=== PATIENT | female | born 1975 | race Two or more races ===

== ENCOUNTER 2019-04-01 08:21 | Emergency (ER) | payer OTHER ==
[~2019-04-01] VITALS: Ht 172.7 cm; Wt 81.6 kg
--- NOTE | 2019-04-01 08:49 | PHYS DOC ---
Past Medical History Past Medical History: No Pertinent History Past Surgical History: Tonsillectomy, Other Additional Past Surgical Histo: PRK, JAW RECONSTRUCTION, L. ANKLE Alcohol Use: Occasionally Drug Use: None Adult General Chief Complaint Chief Complaint: LOWER BACK PAIN OR INJURY HPI HPI Patient is a 43 year old female with no significant medical history who presents to the ED today complaining of 5 out of 10 left low back pain radiating to the left lower quadrant that began yesterday. Patient is also complaining of chills and nausea. Denies any hematuria. Denies any personal family history of kidney stones. Review of Systems Review of Systems Constitutional: Denies fever or chills [] Eyes: Denies change in visual acuity, redness, or eye pain [] HENT: Denies nasal congestion or sore throat [] Respiratory: Denies cough or shortness of breath [] Cardiovascular: No additional information not addressed in HPI [] GI: Reports left lower quadrant abdominal pain with nausea, denies vomiting, bloody stools or diarrhea [] : Denies dysuria or hematuria [] Musculoskeletal: Reports left low back pain radiating to the left lower quadrant. Integument: Denies rash or skin lesions [] Neurologic: Denies headache, focal weakness or sensory changes [] All other systems were reviewed and found to be within normal limits, except as documented in this note. Current Medications Current Medications Current Medications Medications (Trade) Dose Ordered Sig/Irene Start Time Stop Time Status Last Admin Dose Admin Ondansetron HCl (Zofran) 4 mg 1X ONCE 04/01/19 09:00 04/01/19 09:01 DC 04/01/19 09:06 4 MG Sodium Chloride 1,000 ml @ 1,000 mls/hr 1X ONCE 04/01/19 09:00 04/01/19 09:59 DC 04/01/19 09:06 1,000 MLS/HR Allergies Allergies Allergies Coded Allergies Type Severity Reaction Last Updated Verified No Known Drug Allergies 04/01/19 No Physical Exam Physical Exam Constitutional: Well developed, well nourished, no acute distress, non-toxic appearance. [] HENT: Normocephalic, atraumatic, bilateral external ears normal, oropharynx moist, no oral exudates, nose normal. [] Eyes: PERRLA, EOMI, conjunctiva normal, no discharge. [] Neck: Normal range of motion, no tenderness, supple, no stridor. [] Cardiovascular:Heart rate regular rhythm, no murmur [] Lungs & Thorax: Bilateral breath sounds clear to auscultation [] Abdomen: Bowel sounds normal, soft, no tenderness, no masses, no pulsatile masses. [] Skin: Warm, dry, no erythema, no rash. [] Back: No tenderness, no CVA tenderness. [] Extremities: No tenderness, no cyanosis, no clubbing, ROM intact, no edema. [] Neurologic: Alert and oriented X 3, normal motor function, normal sensory function, no focal deficits noted. [] Psychologic: Affect normal, judgement normal, mood normal. [] Current Patient Data Vital Signs Vital Signs Date Time Temp Pulse Resp B/P (MAP) Pulse Ox O2 Delivery O2 Flow Rate FiO2 04/01/19 08:40 98.3 65 18 117/73 (88) 100 Room Air 98.3 Lab Values Laboratory Tests Test 04/01/19 08:35 04/01/19 08:57 04/01/19 09:03 Urine Collection Type Unknown Urine Color Yellow Urine Clarity Clear Urine pH 6.0 Urine Specific Rankin 1.010 Urine Protein Negative mg/dL (NEG-TRACE) Urine Glucose (UA) Negative mg/dL (NEG) Urine Ketones (Stick) Negative mg/dL (NEG) Urine Blood Trace (NEG) Urine Nitrite Negative (NEG) Urine Bilirubin Negative (NEG) Urine Urobilinogen Dipstick 0.2 mg/dL (0.2 mg/dL) Urine Leukocyte Esterase Trace (NEG) Urine RBC 3-5 /HPF (0-2) Urine WBC 1-4 /HPF (0-4) Urine Squamous Epithelial Cells Mod /LPF Urine Bacteria Moderate /HPF (0-FEW) White Blood Count 5.1 x10^3/uL (4.0-11.0) Red Blood Count 4.24 x10^6/uL (3.50-5.40) Hemoglobin 13.8 g/dL (12.0-15.5) Hematocrit 41.1 % (36.0-47.0) Mean Corpuscular Volume 97 fL (79-100) Mean Corpuscular Hemoglobin 33 pg (25-35) Mean Corpuscular Hemoglobin Concent 34 g/dL (31-37) Red Cell Distribution Width 12.9 % (11.5-14.5) Platelet Count 211 x10^3/uL (140-400) Neutrophils (%) (Auto) 79 % (31-73) H Lymphocytes (%) (Auto) 12 % (24-48) L Monocytes (%) (Auto) 6 % (0-9) Eosinophils (%) (Auto) 2 % (0-3) Basophils (%) (Auto) 0 % (0-3) Neutrophils # (Auto) 4.0 x10^3/uL (1.8-7.7) Lymphocytes # (Auto) 0.6 x10^3/uL (1.0-4.8) L Monocytes # (Auto) 0.3 x10^3/uL (0.0-1.1) Eosinophils # (Auto) 0.1 x10^3/uL (0.0-0.7) Basophils # (Auto) 0.0 x10^3/uL (0.0-0.2) Sodium Level 140 mmol/L (136-145) Potassium Level 4.3 mmol/L (3.5-5.1) Chloride Level 106 mmol/L (98-107) Carbon Dioxide Level 27 mmol/L (21-32) Anion Gap 7 (6-14) Blood Urea Nitrogen 11 mg/dL (7-20) Creatinine 0.9 mg/dL (0.6-1.0) Estimated GFR (Cockcroft-Gault) 68.3 BUN/Creatinine Ratio 12 (6-20) Glucose Level 89 mg/dL (70-99) Calcium Level 8.0 mg/dL (8.5-10.1) L Total Bilirubin 1.1 mg/dL (0.2-1.0) H Aspartate Amino Transferase (AST) 28 U/L (15-37) Alanine Aminotransferase (ALT) 27 U/L (14-59) Alkaline Phosphatase 62 U/L (46-116) Total Protein 7.2 g/dL (6.4-8.2) Albumin 3.7 g/dL (3.4-5.0) Albumin/Globulin Ratio 1.1 (1.0-1.7) Lipase 115 U/L (73-393) POC Urine HCG, Qualitative Hcg negative (Negative) Laboratory Tests 04/01/19 08:57 Laboratory Tests 04/01/19 08:57 EKG EKG [] Radiology/Procedures Radiology/Procedures [] Course & Med Decision Making Course & Med Decision Making Pertinent Labs and Imaging studies reviewed. (See chart for details) This is a 43-year-old female patient presented to the ED today with left lower back pain radiating to the left lower quadrant that began yesterday. CBC, CMP-no acute findings. Urine has quite a bit of bacteria, trace amount of leukocytes, 1-4 WBCs-patient could be having early presentation of UTI though the urine appears contaminated-will d/c on Bactrim for 3 days, D/c on cyclobenzaprine, diclofenac to cover her for musculoskeletal aspect of the back pain. Instructed to push fluids. Dragon Disclaimer Dragon Disclaimer This electronic medical record was generated, in whole or in part, using a voice recognition dictation system. Departure Departure Impression: Primary Impression: Back pain Additional Impression: UTI (urinary tract infection) Disposition: HOME, SELF-CARE Condition: STABLE Patient Instructions: Back Pain, Adult, Urinary Tract Infection Additional Instructions: You were evaluated in the emergency room for back pain, we put you on antibiotics to cover you for infection in the urine. Ensure you complete them. Take the prescribed medications as ordered. Push fluids. Follow-up with your doctor in one week. Scripts Cyclobenzaprine Hcl (CYCLOBENZAPRINE HCL) 10 Mg Tablet 1 TAB PO TID, #30 TAB Prov: BECKA WITNER APRN 04/01/19 Diclofenac Potassium (DICLOFENAC POTASSIUM) 50 Mg Tablet 1 TAB PO BID, #20 TAB 0 Refills Prov: BECKA WINTER APRN 04/01/19 Sulfamethoxazole/Trimethoprim (BACTRIM DS TABLET) 1 Each Tablet 1 TAB PO BID, #6 TAB Prov: BECKA WINTER APRN 04/01/19 Problem Qualifiers Primary Impression: Back pain Back pain location: low back pain Chronicity: acute Back pain laterality: left Sciatica presence: with sciatica Sciatica laterality: sciatica of left side Qualified Codes: M54.42 - Lumbago with sciatica, left side Additional Impression: UTI (urinary tract infection) Urinary tract infection type: site unspecified Hematuria presence: without hematuria Qualified Codes: N39.0 - Urinary tract infection, site not specified BECKA WINTER APRN Apr 01, 2019 08:49
[2019-04-01] MEDS ORDERED: IV NORMAL SALINE 1000ML BAG 1,000 ML IV ONE (09:00)
[2019-04-01] MEDS ORDERED: ONDANSETRON PF 4 MG/2 ML VIAL. IV ONE (09:00)
[2019-04-01 09:10] LABS: BASO % 0 % (0-3); EOS # 0.1 x10^3/uL (0.0-0.7); EOS % 2 % (0-3); HEMATOCRIT 41.1 % (36.0-47.0); HEMOGLOBIN 13.8 g/dL (12.0-15.5); LYMPH # 0.6 x10^3/uL (1.0-4.8); LYMPH % 12 % (24-48); MEAN CORPUSCULAR HEMOGLOBIN 33 pg (25-35); MEAN CORPUSCULAR HGB CONC 34 g/dL (31-37); MEAN CORPUSCULAR VOLUME 97 fL (79-100); MONO # 0.3 x10^3/uL (0.0-1.1); MONO % 6 % (0-9); NEUT % 79 % (31-73); PLATELET COUNT 211 x10^3/uL (140-400); RED BLOOD COUNT 4.24 x10^6/uL (3.50-5.40); RED CELL DISTRIBUTION WIDTH 12.9 % (11.5-14.5); WHITE BLOOD COUNT 5.1 x10^3/uL (4.0-11.0)
[2019-04-01 09:10] LABS: BILIRUBIN,URINE NEGATIVE (NEG); CLARITY,URINE CLEAR; COLOR,URINE YELLOW; NITRITE,URINE NEGATIVE (NEG); PROTEIN,URINE NEGATIVE (NEG-TRACE); UROBILINOGEN,URINE 0.2 mg/dL (0.2 mg/dL)
[2019-04-01 09:22] LABS: CREATININE 0.9 mg/dL (0.6-1.0); GFR 68.3; POTASSIUM 4.3 mmol/L (3.5-5.1)
[2019-04-01 09:24] LABS: BACTERIA,URINE MODERATE /HPF (0-FEW); SQUAMOUS EPITHELIAL CELL,UR MOD /LPF
[2019-04-01 09:28] LABS: ALBUMIN 3.7 g/dL (3.4-5.0); ALBUMIN/GLOBULIN RATIO 1.1 (1.0-1.7); TOTAL BILIRUBIN 1.1 mg/dL (0.2-1.0); TOTAL PROTEIN 7.2 g/dL (6.4-8.2)
[2019-04-01 10:21] VITALS: BP 96/55
[2019-04-01] MEDS ORDERED: CYCL10TA2 PO (10:44)
[2019-04-01] MEDS ORDERED: DICL50TA2 PO (10:44)
[2019-04-01] MEDS ORDERED: SULF1TAB24 PO (10:44)
[2019-04-01] MEDS ORDERED: NAPROXEN 500 MG TABLET PO STA (10:47)
[2019-04-01] MEDS ORDERED: CYCLOBENZAPRINE 10 MG TABLET. PO ONE (11:00)
[2019-04-01] MEDS ORDERED: HYDROcodone/APAP 5/325MG 1 TAB TABLET PO ONE (11:00)
== END 2019-04-01 11:06 | disposition home or self-care (01) ==
LOC: ER 08:21
DX: N39.0 Urinary tract infection, site not specified (principal); M54.42 Lumbago with sciatica, left side
CPT/HCPCS: 36415; 80053; 81001; 81025; 83690; 85025; 87086; 96374; 99284; J2405; J7030

== ENCOUNTER 2020-01-28 13:55 | Emergency (ER) | payer OTHER ==
[~2020-01-28] VITALS: Ht 172.7 cm; Wt 90.0 kg
[~2020-01-28 13:55] MED LIST: CYCL10TA2 PO; DICL50TA2 PO; SULF1TAB24 PO
[2020-01-28] MEDS ORDERED: ONDANSETRON PF 4 MG/2 ML VIAL. IVP ONE (14:15)
[2020-01-28] MEDS ORDERED: MORPHINE SULFATE 2 MG/ML VIAL. IV ONE (14:15)
[2020-01-28] MEDS ORDERED: IV NORMAL SALINE 1000ML BAG 1,000 ML IV ONE (14:15)
[2020-01-28 14:16] LABS: BASO % 0 % (0-3); EOS # 0.2 x10^3/uL (0.0-0.7); EOS % 2 % (0-3); HEMATOCRIT 39.7 % (36.0-47.0); HEMOGLOBIN 13.7 g/dL (12.0-15.5); LYMPH # 1.8 x10^3/uL (1.0-4.8); LYMPH % 22 % (24-48); MEAN CORPUSCULAR HEMOGLOBIN 33 pg (25-35); MEAN CORPUSCULAR HGB CONC 35 g/dL (31-37); MEAN CORPUSCULAR VOLUME 94 fL (79-100); MONO # 0.4 x10^3/uL (0.0-1.1); MONO % 5 % (0-9); NEUT # 5.8 x10^3/uL (1.8-7.7); NEUT % 71 % (31-73); PLATELET COUNT 211 x10^3/uL (140-400); RED BLOOD COUNT 4.21 x10^6/uL (3.50-5.40); RED CELL DISTRIBUTION WIDTH 13.1 % (11.5-14.5); WHITE BLOOD COUNT 8.3 x10^3/uL (4.0-11.0)
[2020-01-28 14:17] LABS: BILIRUBIN,URINE NEGATIVE (NEG); CLARITY,URINE CLOUDY; COLOR,URINE YELLOW; NITRITE,URINE NEGATIVE (NEG); PH,URINE 6.5 (<5.0-8.0); PROTEIN,URINE NEGATIVE (NEG-TRACE); UROBILINOGEN,URINE 0.2 mg/dL (0.2 mg/dL)
--- NOTE | 2020-01-28 14:18 | PHYS DOC ---
Past Medical History Past Medical History: Sciatica Additional Past Medical Histor: "I'm high risk for cancer so i take a prescription preventative." Past Surgical History: Tonsillectomy, Other Additional Past Surgical Histo: PRK, JAW RECONSTRUCTION, L. ANKLE Smoking Status: Never Smoker Alcohol Use: None Drug Use: None General Adult EDM: Chief Complaint: FLANK PAIN HPI: HPI: Patient is a 44 year old female who presents with states last night she began having bilateral lower flank pain that wraps around to her bilateral lower abdomen. She states that at first the pain would dull but then it would come back. She states that she will take Tylenol and ibuprofen but is not helping. She states she is much worse today and she is having nausea but she has not vomited. She denies having any burning with urination but states she was unable to urinate last couple of hours. She denies any kind of fever, vomiting, blood in her urine, diarrhea, constipation, headache, dizziness, shortness of breath, chest pain. She currently has the Mirena so she does not have periods. Review of Systems: Review of Systems: GI: abdominal pain, nausea, denies vomiting, bloody stools or diarrhea. [] Musculoskeletal: Bilateral flank back pain or joint pain. [] Heart Score: Risk Factors: Risk Factors: DM, Current or recent (<one month) smoker, HTN, HLP, family history of CAD, obesity. Risk Scores: Score 0 - 3: 2.5% MACE over next 6 weeks - Discharge Home Score 4 - 6: 20.3% MACE over next 6 weeks - Admit for Clinical Observation Score 7 - 10: 72.7% MACE over next 6 weeks - Early Invasive Strategies Current Medications: Current Medications Medications (Trade) Dose Ordered Sig/[facility] Start Time Stop Time Status Last Admin Dose Admin Morphine Sulfate (Morphine Sulfate) 2 mg 1X ONCE 01/28/20 14:15 01/28/20 14:16 Ondansetron HCl (Zofran) 4 mg 1X ONCE 01/28/20 14:15 01/28/20 14:16 Sodium Chloride 1,000 ml @ 1,000 mls/hr 1X ONCE 01/28/20 14:15 01/28/20 15:14 Allergies: Allergies: Allergies Coded Allergies Type Severity Reaction Last Updated Verified No Known Drug Allergies 04/01/19 No Physical Exam: PE: Constitutional: Well developed, well nourished, no acute distress, non-toxic appearance. [] HENT: Normocephalic, atraumatic, bilateral external ears normal, oropharynx moist, no oral exudates, nose normal. [] Eyes: PERRLA, EOMI, conjunctiva normal, no discharge. [] Neck: Normal range of motion, no tenderness, supple, no stridor. [] Cardiovascular:Heart rate regular rhythm, no murmur [] Lungs & Thorax: Bilateral breath sounds clear to auscultation [] Abdomen: Bowel sounds normal, soft, no tenderness, no masses, no pulsatile masses. [] Skin: Warm, dry, no erythema, no rash. [] Back: No tenderness, Bilateral CVA tenderness. [] Extremities: No tenderness, no cyanosis, no clubbing, ROM intact, no edema. [] Neurologic: Alert and oriented X 3, normal motor function, normal sensory fun ction, no focal deficits noted. [] Psychologic: Affect normal, judgement normal, mood normal. [] Current Patient Data: Vital Signs: Vital Signs Date Time Temp Pulse Resp B/P (MAP) Pulse Ox O2 Delivery O2 Flow Rate FiO2 01/28/20 13:57 98.7 61 20 111/57 (75) 100 Room Air 98.7 EKG: EKG: [] Radiology/Procedures: Radiology/Procedures: [] Impression: [facility] [address] [place], [place] [id number] IMAGING REPORT Signed PATIENT: KENDY ROSE MACCOUNT: [id number] : 1975 LOCATION: ER AGE: 44 SEX: F EXAM STATUS: REG ER ORD. PHYSICIAN: MISSY MARKS APRN REASON: flank pain and lower abd pain PROCEDURE: CT ABD PELV W/ IV CONTRST ONLY CT ABD PELV W/ IV CONTRST ONLY History: Reason: flank pain and lower abd pain / Spl. Instructions: INJ 75ML OMNI 300 / History: Comparison: None. Technique: After administration of intravenous contrast, helical CT of the abdomen and pelvis was performed from the lung bases through the ischial tuberosities. Coronal and sagittal reconstructions were obtained. 75 mL of Omnipaque 300 were used. One or more of the following dose reduction techniques were utilized: Automated exposure control (AEC), Adjustment of mA and/or kV according to patient size, Use of iterative reconstruction technique such as ASiR, CT scan done according to ALARA and image gently/image wisely Abdomen Findings: The visualized lung bases are clear. Small hiatal hernia. The liver, gallbladder, pancreas, spleen, and bilateral adrenal glands are normal. Symmetric renal enhancement. There is no focal renal mass. There is no hydronephrosis. The visualized loops of small bowel are normal. The visualized loops of large bowel are normal. There is no evidence of bowel obstruction. Appendix is normal. There is no free fluid. There is no mesenteric or retroperitoneal adenopathy. The abdominal aorta is normal in caliber. Pelvis Findings: Urinary bladder is markedly distended. Uterus is present. IUD in place. There is no pelvic or inguinal adenopathy. Degenerative changes of the spine. IMPRESSION: Markedly distended bladder. Consider decompression. No hydronephrosis or opaque urinary calculi. Electronically signed by: Chris Lee MD (01/28/2020 4:38 PM) [id number] DICTATED and SIGNED BY: CHRIS LEE MD DATE: 01/28/20 [id number] Course & Med Decision Making: Course & Med Decision Making Pertinent Labs and Imaging studies reviewed. (See chart for details) Abdomen is soft and nontender. Bilateral CVA tenderness. Alert and oriented. Patient was unable to move herself from the cot to the bed due to the pain. Speaks in full clear sentences. Patient is tearful. No extremity edema. EMS gave the patient 100 mcgs of fentanyl prior to arrival. Patient is rating her pain 8 out of 10. She states it is sharp and radiating. Denies injury. Hemodynamically stable. Afebrile. CT shows no acute findings. Patient will be sent home on antibiotics. She did receive Rocephin 1 g in the ED. Patient is able to get up and ambulate without complications. She went to the restroom by herself. [] Dragon Disclaimer: Dragon Disclaimer: This electronic medical record was generated, in whole or in part, using a voice recognition dictation system. Departure Departure Impression: Primary Impression: UTI (urinary tract infection) Qualified Codes: N39.0 - Urinary tract infection, site not specified Disposition: HOME, SELF-CARE Condition: STABLE Referrals: NO PCP (PCP) Patient Instructions: Urinary Tract Infection Additional Instructions: Follow up with primary care provider. Take medications as prescribed and with food. Drink plenty of fluids. Scripts Hydrocodone/Apap 5-325 (NORCO 5-325 TABLET) 1 Each Tablet 1 TAB PO PRN Q6HRS PRN for PAIN, #12 TAB 0 Refills Prov: MISSY MARKS APRN 01/28/20 Ondansetron (ONDANSETRON ODT) 4 Mg Tab.rapdis 1 TAB PO PRN Q6-8HRS, #20 TAB Prov: MISSY MARKS APRN 01/28/20 Cephalexin (KEFLEX) 500 Mg Capsule 1 CAP PO BID for 7 Days, #14 CAP 0 Refills Prov: MISSY MARKS [employer] INST[employer]ER 01/28/20 MISSY MARKS APRN January 28, 2020 14:18
[2020-01-28 14:27] LABS: CALCIUM 8.6 mg/dL (8.5-10.1); GFR 60.2; POTASSIUM 3.4 mmol/L (3.5-5.1)
[2020-01-28 14:31] LABS: BACTERIA,URINE MANY /HPF (0-FEW); RBC,URINE 0 /HPF (0-2); SQUAMOUS EPITHELIAL CELL,UR MANY /LPF; WBC,URINE 20-40 /HPF (0-4)
[2020-01-28 14:33] LABS: ALBUMIN 3.6 g/dL (3.4-5.0); ALBUMIN/GLOBULIN RATIO 1.2 (1.0-1.7); TOTAL BILIRUBIN 0.7 mg/dL (0.2-1.0); TOTAL PROTEIN 6.7 g/dL (6.4-8.2)
[2020-01-28 14:35] LABS: PROTHROMBIN TIME PATIENT 12.7 SEC (11.7-14.0)
[2020-01-28] MEDS ORDERED: cefTRIAXone IV Push 1 GM VIAL. IVP ONE (14:45)
[2020-01-28] MEDS ORDERED: CONTRAST GIVEN. MC PRN (15:00)
[2020-01-28] MEDS ORDERED: IOHEXOL 300 MG/ML 100ML VIAL. IV ONE (15:00)
--- NOTE | 2020-01-28 16:42 | RAD ---
CT ABD PELV W/ IV CONTRST ONLY History: Reason: flank pain and lower abd pain / Spl. Instructions: INJ 75ML OMNI 300 / History: Comparison: None. Technique: After administration of intravenous contrast, helical CT of the abdomen and pelvis was performed from the lung bases through the ischial tuberosities. Coronal and sagittal reconstructions were obtained. 75 mL of Omnipaque 300 were used. One or more of the following dose reduction techniques were utilized: Automated exposure control (AEC), Adjustment of mA and/or kV according to patient size, Use of iterative reconstruction technique such as ASiR, CT scan done according to ALARA and image gently/image wisely Abdomen Findings: The visualized lung bases are clear. Small hiatal hernia. The liver, gallbladder, pancreas, spleen, and bilateral adrenal glands are normal. Symmetric renal enhancement. There is no focal renal mass. There is no hydronephrosis. The visualized loops of small bowel are normal. The visualized loops of large bowel are normal. There is no evidence of bowel obstruction. Appendix is normal. There is no free fluid. There is no mesenteric or retroperitoneal adenopathy. The abdominal aorta is normal in caliber. Pelvis Findings: Urinary bladder is markedly distended. Uterus is present. IUD in place. There is no pelvic or inguinal adenopathy. Degenerative changes of the spine. IMPRESSION: Markedly distended bladder. Consider decompression. No hydronephrosis or opaque urinary calculi. Electronically signed by: Chris Sheffield MD (01/28/2020 4:38 PM) [id number]
[2020-01-28] MEDS ORDERED: CEPH-264 PO (16:53)
[2020-01-28] MEDS ORDERED: HYDR-3164 PO (16:53)
[2020-01-28] MEDS ORDERED: ONDA4TAB12 PO (16:53)
[2020-01-28 17:26] VITALS: BP 96/57
== END 2020-01-28 17:35 | disposition home or self-care (01) ==
LOC: ER 13:55
DX: N39.0 Urinary tract infection, site not specified (principal); R10.32 Left lower quadrant pain; R10.31 Right lower quadrant pain; R11.0 Nausea; Z90.89 Acquired absence of other organs; Z98.890 Other specified postprocedural states
CPT/HCPCS: 36415; 74177; 80053; 81001; 81025; 85025; 85610; 87086; 96374; 96375; 99285; J0696; J2270; J2405; J7030; Q9967

== ENCOUNTER 2020-02-21 10:47 | Emergency (ER) | payer OTHER ==
[~2020-02-21] VITALS: Ht 172.7 cm; Wt 89.0 kg
[~2020-02-21 10:47] MED LIST changes: +CEPH-264 PO; +HYDR-3164 PO; +ONDA4TAB12 PO
[2020-02-21] MEDS ORDERED: HYDR-3164 PO (11:11)
[2020-02-21] MEDS ORDERED: METH-38 PO (11:11)
--- NOTE | 2020-02-21 11:12 | PHYS DOC ---
Past Medical History Past Medical History: Sciatica Additional Past Medical Histor: "I'm high risk for cancer so i take a prescription preventative." Past Surgical History: Tonsillectomy, Other Additional Past Surgical Histo: PRK, JAW RECONSTRUCTION, L. ANKLE Smoking Status: Never Smoker Alcohol Use: None Drug Use: None General Adult EDM: Chief Complaint: LOWER BACK PAIN OR INJURY HPI: HPI: Patient is a 44-year-old female with a chronic history of back pain. She states she is been having trouble for about a year and a half. She states today she has had more problems in her low back radiating into her right hip and leg. She states the pain in her leg is a burning sensation. She denies any bowel or bladder dysfunction. She does not know how she aggravated her back pain this time. She has not taken anything at home to help relieve the pain. [] Review of Systems: Review of Systems: Constitutional: Denies fever or chills. [] Eyes: Denies change in visual acuity. [] HENT: Denies nasal congestion or sore throat. [] Respiratory: Denies cough or shortness of breath. [] Cardiovascular: Denies chest pain or edema. [] GI: Denies abdominal pain, nausea, vomiting, bloody stools or diarrhea. [] : Denies dysuria. [] Musculoskeletal: Per HPI [] Integument: Denies rash. [] Neurologic: Denies headache, focal weakness or sensory changes. [] Endocrine: Denies polyuria or polydipsia. [] Lymphatic: Denies swollen glands. [] Psychiatric: Denies depression or anxiety. [] Heart Score: Risk Factors: Risk Factors: DM, Current or recent (<one month) smoker, HTN, HLP, family history of CAD, obesity. Risk Scores: Score 0 - 3: 2.5% MACE over next 6 weeks - Discharge Home Score 4 - 6: 20.3% MACE over next 6 weeks - Admit for Clinical Observation Score 7 - 10: 72.7% MACE over next 6 weeks - Early Invasive Strategies Current Medications: Current Medications Medications (Trade) Dose Ordered Sig/Irene Start Time Stop Time Status Last Admin Dose Admin Ketorolac Tromethamine (Toradol Im) 60 mg 1X ONCE 02/21/20 11:15 02/21/20 11:16 Orphenadrine Citrate (Norflex) 60 mg 1X ONCE 02/21/20 11:15 02/21/20 11:16 Allergies: Allergies: Allergies Coded Allergies Type Severity Reaction Last Updated Verified No Known Drug Allergies 04/01/19 No Physical Exam: PE: Constitutional: Well developed, well nourished, moderate distress, non-toxic appearance. [] HENT: Normocephalic, atraumatic, bilateral external ears normal, oropharynx moist, no oral exudates, nose normal. [] Eyes: PERRLA, EOMI, conjunctiva normal, no discharge. [] Neck: Normal range of motion, no tenderness, supple, no stridor. [] Cardiovascular:Heart rate regular rhythm, no murmur [] Lungs & Thorax: Bilateral breath sounds clear to auscultation [] Abdomen: Bowel sounds normal, soft, no tenderness, no masses, no pulsatile masses. [] Skin: Warm, dry, no erythema, no rash. [] Back: Lumbar paraspinal muscle spasm positive straight leg raise on the right. [] Extremities: No tenderness, no cyanosis, no clubbing, ROM intact, no edema. [] Neurologic: Alert and oriented X 3, normal motor function, normal sensory function, no focal deficits noted. [] Psychologic: Anxious. [] EKG: EKG: [] Radiology/Procedures: Radiology/Procedures: [] Course & Med Decision Making: Course & Med Decision Making Pertinent Labs and Imaging studies reviewed. (See chart for details) [] Dragon Disclaimer: Dragon Disclaimer: This electronic medical record was generated, in whole or in part, using a voice recognition dictation system. Departure Departure Impression: Primary Impression: Back pain Qualified Codes: M54.41 - Lumbago with sciatica, right side Disposition: 01 HOME, SELF-CARE Condition: STABLE Referrals: HALEIGH MCWILLIAMS MD (PCP) Patient Instructions: Sciatica, Sciatica with Rehab-Sports[facility] Additional Instructions: Return to the emergency department with any new or concerning symptoms Scripts Methocarbamol (ROBAXIN-750) 750 Mg Tablet 1 TAB PO TID, #30 TAB Prov: SILVIA CLAYTON DO 02/21/20 Hydrocodone/Apap 5-325 (NORCO 5-325 TABLET) 1 Each Tablet 1 TAB PO PRN Q6HRS PRN for PAIN, #15 TAB 0 Refills Prov: SILVIA CLAYTON DO 02/21/20 Justicifation of Admission Dx: Justifications for Admission: Justification of Admission Dx: No SILVIA CLAYTON DO Feb 21, 2020 11:11
[2020-02-21 11:15] VITALS: BP 120/50
[2020-02-21] MEDS ORDERED: ORPHENADRINE CITRATE 60 MG/2 ML VIAL. IM ONE (11:15)
[2020-02-21] MEDS ORDERED: KETOROLAC 60 MG/2 ML VIAL. IM ONE (11:15)
== END 2020-02-21 11:55 | disposition home or self-care (01) ==
LOC: ER 10:47
DX: M54.41 Lumbago with sciatica, right side (principal); M25.551 Pain in right hip
CPT/HCPCS: 96372; 99284; J1885; J2360

== ENCOUNTER 2020-03-13 10:40 | Emergency (ER) | payer OTHER ==
[~2020-03-13] VITALS: Ht 172.7 cm; Wt 90.0 kg
[~2020-03-13 10:40] MED LIST changes: +METH-38 PO
[2020-03-13 10:50] VITALS: BP 106/53
--- NOTE | 2020-03-13 11:13 | PHYS DOC ---
Past Medical History Past Medical History: Sciatica Additional Past Medical Histor: "I'm high risk for cancer so i take a prescription preventative.", DDD Past Surgical History: Tonsillectomy, Other Additional Past Surgical Histo: PRK, JAW RECONSTRUCTION, L. ANKLE Smoking Status: Never Smoker Alcohol Use: None Drug Use: None General Adult EDM: Chief Complaint: LOWER BACK PAIN OR INJURY HPI: HPI: Patient is a 44 year old [f__sex] who presents with [] Review of Systems: Review of Systems: Constitutional: Denies fever or chills. [] Eyes: Denies change in visual acuity. [] HENT: Denies nasal congestion or sore throat. [] Respiratory: Denies cough or shortness of breath. [] Cardiovascular: Denies chest pain or edema. [] GI: Denies abdominal pain, nausea, vomiting, bloody stools or diarrhea. [] : Denies dysuria. [] Musculoskeletal: Denies back pain or joint pain. [] Integument: Denies rash. [] Neurologic: Denies headache, focal weakness or sensory changes. [] Endocrine: Denies polyuria or polydipsia. [] Lymphatic: Denies swollen glands. [] Psychiatric: Denies depression or anxiety. [] Heart Score: Risk Factors: Risk Factors: DM, Current or recent (<one month) smoker, HTN, HLP, family history of CAD, obesity. Risk Scores: Score 0 - 3: 2.5% MACE over next 6 weeks - Discharge Home Score 4 - 6: 20.3% MACE over next 6 weeks - Admit for Clinical Observation Score 7 - 10: 72.7% MACE over next 6 weeks - Early Invasive Strategies Allergies: Allergies: Allergies Coded Allergies Type Severity Reaction Last Updated Verified No Known Drug Allergies 04/01/19 No Physical Exam: PE: Constitutional: Well developed, well nourished, no acute distress, non-toxic appearance. [] HENT: Normocephalic, atraumatic, bilateral external ears normal, oropharynx moist, no oral exudates, nose normal. [] Eyes: PERRLA, EOMI, conjunctiva normal, no discharge. [] Neck: Normal range of motion, no tenderness, supple, no stridor. [] Cardiovascular:Heart rate regular rhythm, no murmur [] Lungs & Thorax: Bilateral breath sounds clear to auscultation [] Abdomen: Bowel sounds normal, soft, no tenderness, no masses, no pulsatile masses. [] Skin: Warm, dry, no erythema, no rash. [] Back: No tenderness, no CVA tenderness. [] Extremities: No tenderness, no cyanosis, no clubbing, ROM intact, no edema. [] Neurologic: Alert and oriented X 3, normal motor function, normal sensory function, no focal deficits noted. [] Psychologic: Affect normal, judgement normal, mood normal. [] Current Patient Data: Vital Signs: Vital Signs Date Time Temp Pulse Resp B/P (MAP) Pulse Ox O2 Delivery O2 Flow Rate FiO2 03/13/20 10:50 98.6 70 16 106/53 (70) 98 Room Air 98.6 EKG: EKG: [] Radiology/Procedures: Radiology/Procedures: [] Course & Med Decision Making: Course & Med Decision Making Pertinent Labs and Imaging studies reviewed. (See chart for details) [] Dragon Disclaimer: Dragon Disclaimer: This electronic medical record was generated, in whole or in part, using a voice recognition dictation system. Departure Departure Impression: Primary Impression: Acute exacerbation of chronic low back pain Additional Impression: Sciatica Qualified Codes: M54.31 - Sciatica, right side Disposition: 01 HOME, SELF-CARE Condition: STABLE Referrals: HALEIGH MCWILLIAMS MD (PCP) JANETTE ANGUIANO MD Patient Instructions: Chronic Back Pain, Sciatica, [id number] Scripts Oxycodone/Apap 5-325 (PERCOCET 5-325 MG TABLET ) 1 Each Tablet 0.5-1 TAB PO PRN Q6HRS PRN for PAIN, #10 TAB 0 Refills Prov: CURRY LESTER DO 03/13/20 Prednisone (PREDNISONE) 20 Mg Tablet 2 TAB PO DAILY, #8 TAB Start this prescription tomorrow, Saturday03/14/20 Prov: CURRY LESTER DO 03/13/20 Justicifation of Admission Dx: Justifications for Admission: Justification of Admission Dx: N/A CURRY LESTER DO Mar 13, 2020 11:13
[2020-03-13] MEDS ORDERED: DEXAMETHASONE 4 MG TABLET PO ONE (11:15)
[2020-03-13] MEDS ORDERED: MORPHINE SULFATE 4 MG/ML VIAL. IM ONE (11:15)
[2020-03-13] MEDS ORDERED: OXYC1TAB15 PO (11:17)
[2020-03-13] MEDS ORDERED: PRED20TA PO (11:17)
== END 2020-03-13 11:30 | disposition home or self-care (01) ==
LOC: ER 10:40
DX: M54.41 Lumbago with sciatica, right side (principal); Z90.89 Acquired absence of other organs; Z98.890 Other specified postprocedural states
CPT/HCPCS: 96372; 99283; J2270

== ENCOUNTER 2020-03-23 13:46 | Emergency (ER) | payer OTHER ==
[~2020-03-23] VITALS: Ht 172.7 cm; Wt 90.0 kg
[~2020-03-23 13:46] MED LIST changes: +OXYC1TAB15 PO; +PRED20TA PO
[2020-03-23 13:53] VITALS: BP 119/61
[2020-03-23] MEDS ORDERED: MORPHINE SULFATE 4 MG/ML VIAL. IV ONE (15:00)
[2020-03-23] MEDS ORDERED: DEXAMETHASONE SOD PHOS 20 MG/5 ML VIAL. PO ONE (15:00)
[2020-03-23] MEDS ORDERED: PRED20TA PO (15:09)
--- NOTE | 2020-03-23 15:10 | PHYS DOC ---
Past Medical History Past Medical History: Sciatica, Other Additional Past Medical Histor: "I'm high risk for cancer so i take a prescription preventative.", DDD Past Surgical History: Tonsillectomy, Other Additional Past Surgical Histo: PRK, JAW RECONSTRUCTION, L. ANKLE Smoking Status: Never Smoker Alcohol Use: None Drug Use: None General Adult EDM: Chief Complaint: LOWER BACK PAIN OR INJURY HPI: HPI: Patient is a 44 year old female who presents emergency department who presents to the emergency department with complaints of chronic back pain exacerbation. She complains of bilateral lower back pain that radiates down her right leg since Saturday evening. She was seen here a few weeks ago for sciatica and she was giving a shot and a pill. Patient reports that she was prescribed oxycodone and prednisone during that visit. She states while she was taking prednisone her back pain was decreased but it returned again this week. She states that the oxycodone was only making her drowsy and not really helping with the pain. She denies any saddle anesthesia, or loss of bowel/bladder control. She denies any recent fall or new injury. She currently rates pain 9 out of 10 on the pain scale, she denies any alleviating factors, the pain increases with movement Review of Systems: Review of Systems: Constitutional: Denies fever or chills. [] Respiratory: Denies cough or shortness of breath. [] Cardiovascular: Denies chest pain or edema. [] GI: Denies abdominal pain, vomiting, or diarrhea; reports nausea : Denies dysuria. [] Musculoskeletal: See HPI Integument: Denies rash. [] Neurologic: Denies focal weakness or sensory changes. [] Psychiatric: Denies depression or anxiety. [] Heart Score: Risk Factors: Risk Factors: DM, Current or recent (<one month) smoker, HTN, HLP, family history of CAD, obesity. Risk Scores: Score 0 - 3: 2.5% MACE over next 6 weeks - Discharge Home Score 4 - 6: 20.3% MACE over next 6 weeks - Admit for Clinical Observation Score 7 - 10: 72.7% MACE over next 6 weeks - Early Invasive Strategies Current Medications: Current Medications Medications (Trade) Dose Ordered Sig/Irene Start Time Stop Time Status Last Admin Dose Admin Dexamethasone Sodium Phosphate (Decadron) 10 mg 1X ONCE 03/23/20 15:00 03/23/20 15:01 DC 03/23/20 14:51 10 MG Morphine Sulfate (Morphine Sulfate) 4 mg 1X ONCE 03/23/20 15:15 03/23/20 15:16 03/23/20 14:51 4 MG Allergies: Allergies: Allergies Coded Allergies Type Severity Reaction Last Updated Verified No Known Drug Allergies 04/01/19 No Physical Exam: PE: Constitutional: Well developed, well nourished, no acute distress, non-toxic appearance. [] HENT: Normocephalic, atraumatic, bilateral external ears normal, nose normal. [] Eyes: PERRLA, EOMI, conjunctiva normal, no discharge. [] Neck: Normal range of motion, no stridor. [] Cardiovascular:Heart rate regular rhythm Lungs & Thorax: Respirations even and unlabored, no retractions, no respiratory distress Back: No bony tenderness, bilateral lumbar paraspinal tenderness to palpation, increased pain with right straight leg lift Skin: Warm, dry, no erythema, no rash. [] Extremities: BLE: No cyanosis, ROM intact, no edema. [] Neurologic: Alert and oriented X 3, no focal deficits noted. [] Psychologic: Affect normal, judgement normal, mood normal. [] Current Patient Data: Vital Signs: Vital Signs Date Time Temp Pulse Resp B/P (MAP) Pulse Ox O2 Delivery O2 Flow Rate FiO2 03/23/20 14:51 100 Room Air 03/23/20 13:53 98.7 59 21 119/61 (80) 98.7 EKG: EKG: [] Radiology/Procedures: Radiology/Procedures: [] Course & Med Decision Making: Course & Med Decision Making Pertinent Labs and Imaging studies reviewed. (See chart for details) [] Dragon Disclaimer: Dragon Disclaimer: This electronic medical record was generated, in whole or in part, using a voice recognition dictation system. Departure Departure Impression: Primary Impression: Back pain Qualified Codes: M54.41 - Lumbago with sciatica, right side; G89.29 - Other chronic pain Disposition: 01 HOME, SELF-CARE Condition: STABLE Referrals: HALEIGH MCWILLIAMS MD (PCP) Patient Instructions: Sciatica, [id number] Additional Instructions: Continue taking your home medications as prescribed. Fill the prescription(s) and use as directed. Apply heat or ice for to sore areas as needed for comfort. Activity as tolerated. Follow up with your primary care doctor this week if symptoms persist, return to the ER if symptoms worsen. Scripts Prednisone (PREDNISONE) 20 Mg Tablet 1 TAB PO UD for 12 Days, #15 TAB 0 Refills 2 tabs by mouth days 1,2,3 then 1.5 tabs by mouth days 4,5,6 then 1 tab by mouth days 7,8,9 then 0.5 tab by mouth day 10,11,12 Prov: ROSALINA VERNON APRN 03/23/20 Justicifation of Admission Dx: Justifications for Admission: Justification of Admission Dx: N/A ROSALINA VERNON APRN Mar 23, 2020 15:10
[2020-03-23] MEDS ORDERED: MORPHINE SULFATE 4 MG/ML VIAL. IM ONE (15:15)
== END 2020-03-23 15:50 | disposition home or self-care (01) ==
LOC: ER 13:46
DX: G89.29 Other chronic pain (principal); M54.41 Lumbago with sciatica, right side; R11.0 Nausea; Z90.89 Acquired absence of other organs; Z98.890 Other specified postprocedural states
CPT/HCPCS: 96372; 99283; J1100; J2270